=== PATIENT | male | born 1985 | race Caucasian/White ===

== ENCOUNTER 2024-05-01 08:10 | Emergency (ER) | payer SELFPAY | END 2024-05-01 08:55 | disposition home or self-care (01) | LOC: CSHERS 08:10 → EEVIPCON 08:10 → CSHERS 08:55 | DX: T14.8XXA Other injury of unspecified body region, initial encounter (principal); V89.2XXA Person injured in unspecified motor-vehicle accident, traffic, initial encounter | CPT/HCPCS: 99284 ==